=== PATIENT | female | born 1950 | race Caucasian/White ===

== ENCOUNTER 2018-06-06 11:38 | Emergency (ER) | payer MEDICARE, OTHER ==
[~2018-06-06] VITALS: Ht 160 cm; Wt 61.2 kg
[2018-06-06] MEDS ORDERED: IV NORMAL SALINE 1,000ML 1,000 ML IV ONE (12:15)
--- NOTE | 2018-06-06 12:19 | PHYS DOC ---
Past History Past Medical History: No Pertinent History Past Surgical History: No Surgical History Alcohol Use: Heavy Additional Alcohol Information: Patient states she has recently started drinking daily. Adult General Chief Complaint Chief Complaint: MECHANICAL FALL HPI HPI Patient is a 68 year old female who presents with complaint of syncope while at home. Patient states she was in the kitchen and does not remember falling. Her heard a side and came to the kitchen and found her on the ground. Patient had hit her head on the corner of a cupboard causing a laceration to her occipital scalp. Has been healthy up to the bathroom where she realizes she had cooped under [employer] took a shower and then after coming out of the shower and washing on her underwear she had a near syncopal episode where her legs felt weak and she went down to her knees. At this point she did not pass out but did have difficulty standing second 2 weakness and dizziness. Patient admits to drinking alcohol last night and states she has no previous history of seizures, syncope or blackouts. Patient denies any neck pain or lateralizing neurological deficits at this time and has no other acute complaints. Review of Systems Review of Systems Constitutional: Denies fever or chills [] Eyes: Denies change in visual acuity, redness, or eye pain [] HENT: Denies nasal congestion or sore throat [] Respiratory: Denies cough or shortness of breath [] Cardiovascular: No additional information not addressed in HPI [] GI: Denies abdominal pain, nausea, vomiting, bloody stools or diarrhea [] : Denies dysuria or hematuria [] Musculoskeletal: Denies back pain or joint pain [] Integument: Denies rash or skin lesions []positive for laceration Neurologic: Denies headache, focal weakness or sensory changes [] Endocrine: Denies polyuria or polydipsia [] All other systems were reviewed and found to be within normal limits, except as documented in this note. Current Medications Current Medications Current Medications Medications (Trade) Dose Ordered Sig/Brett Start Time Stop Time Status Last Admin Dose Admin Sodium Chloride 1,000 ml @ 1,000 mls/hr 1X ONCE 06/06/18 12:15 06/06/18 13:14 UNV Allergies Allergies Allergies Coded Allergies Type Severity Reaction Last Updated Verified Sulfa (Sulfonamide Antibiotics) Allergy Intermediate 06/06/18 Yes Physical Exam Physical Exam Constitutional: Well developed, well nourished, no acute distress, non-toxic appearance. [] HENT: Normocephalic, patient has a 2 inch laceration to the occipital area with bleeding controlled at this time bilateral external ears normal, oropharynx moist, no oral exudates, nose normal. [] Eyes: PERRLA, EOMI, conjunctiva normal, no discharge. [] Neck: Normal range of motion, no tenderness, supple, no stridor. [] Cardiovascular:Heart rate regular rhythm, no murmur [] Lungs & Thorax: Bilateral breath sounds clear to auscultation [] Abdomen: Bowel sounds normal, soft, no tenderness, no masses, no pulsatile masses. [] Skin: Warm, dry, no erythema, no rash. [] Back: No tenderness, no CVA tenderness. [] Extremities: No tenderness, no cyanosis, no clubbing, ROM intact, no edema. [] Neurologic: Alert and oriented X 3, normal motor function, normal sensory function, no focal deficits noted. [] Psychologic: Affect normal, judgement normal, mood normal. [] Current Patient Data Vital Signs Vital Signs Date Time Temp Pulse Resp B/P (MAP) Pulse Ox O2 Delivery O2 Flow Rate FiO2 06/06/18 11:45 98.1 73 16 93 Room Air EKG EKG Sinus rhythm at a rate of 71 with right axis deviation[] Radiology/Procedures Radiology/Procedures [address] [address] IMAGING REPORT Signed PATIENT: MARCIN VENCES ACCOUNT: [id number] : 1950 LOCATION: ER AGE: 68 SEX: F EXAM STATUS: REG ER ORD. PHYSICIAN: PATTI ZAMORA MD REASON: fall PROCEDURE: PORTABLE CHEST 1V Chest AP portable at 1152: Reason for examination: Fell today with weakness. Comparison is made to previous study dated 01/07/2010. The heart size is normal. Mediastinum is unremarkable. Lung trejo are clear. No acute bony abnormalities are seen. Impression: No acute cardiopulmonary disease. Electronically signed by: Eliza Verdin MD (06/06/2018 12:29 PM) [facility] DICTATED AND SIGNED BY: ELIZA VERDIN MD DATE: 06/06/188 CC: PATTI ZAMORA MD; PCP,NO ~ [place] [address] IMAGING REPORT Signed PATIENT: MARCIN VENCES ACCOUNT: [id number] : 1950 LOCATION: ER AGE: 68 SEX: F EXAM STATUS: REG ER ORD. PHYSICIAN: PATTI ZAMORA MD REASON: fall PROCEDURE: CT HEAD AND CERVICAL SPINE WO CT head without contrast: Reason for examination: Fell today. Hit back of head with headache, dizziness and weakness. Axial images were obtained through the brain. No contrast was administered. Ventricular systems are prominent as are the cerebral sulci and fissures consistent some generalized cerebral atrophy. No midline shift is seen. There are patchy deep white matter changes in the frontal and parietal lobes bilaterally consistent with microvascular ischemic changes. No acute hemorrhage, infarct, mass or edema is evident. No abnormalities are seen at the orbits. The paranasal sinuses and mastoid air cells are clear. No acute skull abnormality is seen. IMPRESSION: Generalized cerebral atrophy with some deep white matter microvascular ischemic changes bilaterally in the frontal and parietal lobes. No acute intracranial abnormality evident. CT cervical spine without contrast: Helical images were obtained through the cervical spine from skull base through the thoracic apices with no contrast administered. Reconstruction was performed in sagittal and coronal planes. The C1 ring is intact. The odontoid process appears to be intact and normally centered between the lateral masses of C1. The vertebral bodies of the cervical spine are normally aligned anteriorly and posteriorly. No acute fracture or subluxation is seen. 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 The intervertebral discs show some moderate narrowing at the C4-5 disc level with some hypertrophic spurring off the endplates. There is also some mild hypertrophic spurring off the anterior endplates of C6-7 disc level. Prevertebral soft tissues are normal. IMPRESSION: Degenerative disc disease at C4-5 level. Hypertrophic spurring at the endplates at C6-7 level. No acute abnormality in the cervical spine. Exposure: One or more of the following individualized dose reduction techniques were utilized for this examination: 1. Automated exposure control 2. Adjustment of the mA and/or kV according to patient size 3. Use of iterative reconstruction technique. Electronically signed by: Eliza Verdin MD (06/06/2018 1:12 PM) [facility] DICTATED AND SIGNED BY: ELIZA VERDIN MD DATE: 06/06/18 1304 CC: PATTI ZAMORA MD; PCP,NO ~ ] Course & Med Decision Making Course & Med Decision Making Pertinent Labs and Imaging studies reviewed. (See chart for details) Chin able to sit up without distress and had negative orthostatics. Patient was able to walk to the bathroom and back with minimal assistance and is sitting currently with no acute complaints at this time. [] Dragon Disclaimer Dragon Disclaimer This electronic medical record was generated, in whole or in part, using a voice recognition dictation system. Departure Departure: Impression: Primary Impression: Fall Additional Impressions: Near syncope History of alcohol consumption Laceration of scalp UTI (urinary tract infection) Disposition: HOME, SELF-CARE Condition: IMPROVED Referrals: PCP,NO (PCP) Additional Instructions: Please follow up with her new primary care as discussed during her stay in the ED. Please assist with bathroom transfers and to and from bed for the next several days. He is considering no alcohol consumption take all medications as prescribed Scripts Ciprofloxacin Hcl (CIPRO) 500 Mg Tablet 1 TAB PO BID, #10 TAB Prov: PATTI ZAMORA MD 06/06/18 Laceration Repair Lac Repair Indication: Fall with laceration of the scalp Procedure: The patient was placed in the appropriate position and anesthesia around the occipital laceration which measured approximately 4 inches she was anesthetized with approximately 10 mL of lidocaine 1% without epi. The area was then skin cleanser, hydrogen peroxide and Betadine. The laceration was and closed with 6 vanessa. The wound area was then dressed with nothing. Total repaired wound length: 4 inches. Other Items: The patient tolerated the procedure well. Complications: None. Problem Qualifiers PATTI ZAMORA MD Jun 06, 2018 12:19
--- NOTE | 2018-06-06 12:33 | RAD ---
Chest AP portable at 1152: Reason for examination: Fell today with weakness. Comparison is made to previous study dated 01/07/2010. The heart size is normal. Mediastinum is unremarkable. Lung trejo are clear. No acute bony abnormalities are seen. Impression: No acute cardiopulmonary disease. Electronically signed by: Eliza Blanco MD (06/06/2018 12:29 PM) [facility]
[2018-06-06 12:38] LABS: BASO % 0 % (0-3); EOS % 0 % (0-3); HEMATOCRIT 43.4 % (36.0-47.0); HEMOGLOBIN 14.6 g/dL (12.0-15.5); LYMPH # 1.6 x10^3/uL (1.0-4.8); LYMPH % 12 % (24-48); MEAN CORPUSCULAR HEMOGLOBIN 30 pg (25-35); MEAN CORPUSCULAR HGB CONC 34 g/dL (31-37); MEAN CORPUSCULAR VOLUME 89 fL (79-100); MONO # 0.7 x10^3/uL (0.0-1.1); MONO % 5 % (0-9); NEUT # 10.8 x10^3uL (1.8-7.7); NEUT % 82 % (31-73); PLATELET COUNT 436 x10^3/uL (140-400); RED CELL DISTRIBUTION WIDTH 13.4 % (11.5-14.5); WHITE BLOOD COUNT 13.2 x10^3/uL (4.0-11.0)
[2018-06-06 12:45] VITALS: BP 171/93
[2018-06-06 12:51] LABS: ALBUMIN 3.8 g/dL (3.4-5.0); ALBUMIN/GLOBULIN RATIO 0.9 (1.0-1.7); CALCIUM 9.4 mg/dL (8.5-10.1); CREATININE 0.7 mg/dL (0.6-1.0); GFR 83.2; TOTAL BILIRUBIN 0.6 mg/dL (0.2-1.0); TOTAL PROTEIN 8.1 g/dL (6.4-8.2)
--- NOTE | 2018-06-06 13:16 | RAD ---
CT head without contrast: Reason for examination: Fell today. Hit back of head with headache, dizziness and weakness. Axial images were obtained through the brain. No contrast was administered. Ventricular systems are prominent as are the cerebral sulci and fissures consistent some generalized cerebral atrophy. No midline shift is seen. There are patchy deep white matter changes in the frontal and parietal lobes bilaterally consistent with microvascular ischemic changes. No acute hemorrhage, infarct, mass or edema is evident. No abnormalities are seen at the orbits. The paranasal sinuses and mastoid air cells are clear. No acute skull abnormality is seen. IMPRESSION: Generalized cerebral atrophy with some deep white matter microvascular ischemic changes bilaterally in the frontal and parietal lobes. No acute intracranial abnormality evident. CT cervical spine without contrast: Helical images were obtained through the cervical spine from skull base through the thoracic apices with no contrast administered. Reconstruction was performed in sagittal and coronal planes. The C1 ring is intact. The odontoid process appears to be intact and normally centered between the lateral masses of C1. The vertebral bodies of the cervical spine are normally aligned anteriorly and posteriorly. No acute fracture or subluxation is seen. 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 The intervertebral discs show some moderate narrowing at the C4-5 disc level with some hypertrophic spurring off the endplates. There is also some mild hypertrophic spurring off the anterior endplates of C6-7 disc level. Prevertebral soft tissues are normal. IMPRESSION: Degenerative disc disease at C4-5 level. Hypertrophic spurring at the endplates at C6-7 level. No acute abnormality in the cervical spine. Exposure: One or more of the following individualized dose reduction techniques were utilized for this examination: 1. Automated exposure control 2. Adjustment of the mA and/or kV according to patient size 3. Use of iterative reconstruction technique. Electronically signed by: Eliza Blanco MD (06/06/2018 1:12 PM) [facility]
[2018-06-06] MEDS ORDERED: LIDOCAINE 1% Multi-Dose 20 ML VIAL. ONE (13:23)
--- NOTE | 2018-06-06 13:23 | EKG ---
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
[2018-06-06] MEDS ORDERED: TETANUS AND DIPHTHERIA TOX/PF 0.5 ML VIAL. VAX IM ONE (14:15)
[2018-06-06 15:19] LABS: CALCIUM 8.5 mg/dL (8.5-10.1); CREATININE 0.7 mg/dL (0.6-1.0); GFR 83.2; POTASSIUM 3.8 mmol/L (3.5-5.1)
[2018-06-06 15:24] LABS: BILIRUBIN,URINE NEG (NEG); CLARITY,URINE HAZY; COLOR,URINE YELLOW; GLUCOSE,URINE NEG (NEG)
[2018-06-06 15:25] LABS: BACTERIA,URINE MANY /HPF (0-FEW); NITRITE,URINE POS (NEG); RBC,URINE OCC /HPF (0-2); SQUAMOUS EPITHELIAL CELL,UR MOD /LPF; UROBILINOGEN,URINE 0.2 mg/dL (0.2 mg/dL)
[2018-06-06] MEDS ORDERED: CIPR500T94 PO (15:38)
[2018-06-06] MEDS ORDERED: CIPROFLOXACIN HCL 500 MG TABLET PO ONE (16:00)
== END 2018-06-06 15:55 | disposition home or self-care (01) ==
LOC: ER 11:38
DX: S01.01XA Laceration without foreign body of scalp, initial encounter (principal); R55 Syncope and collapse; R53.1 Weakness; N39.0 Urinary tract infection, site not specified; F10.20 Alcohol dependence, uncomplicated; Z88.2 Allergy status to sulfonamides; Y90.9 Presence of alcohol in blood, level not specified; W18.09XA Striking against other object with subsequent fall, initial encounter; Y93.89 Activity, other specified; Y92.090 Kitchen in other non-institutional residence as the place of occurrence of the external cause; Y99.8 Other external cause status
CPT/HCPCS: 12004; 36415; 70450; 71045; 72125; 80048; 80053; 81001; 82550; 82553; 83735; 84443; 84484; 85025; 87086; 90471; 90714; 93005; 96360; 96361; 99285; G0480; J7030